=== PATIENT | female | born 1935 | race African-American/Black ===

== ENCOUNTER 2019-08-02 11:46 | Day surgery (SDC) | payer MEDICARE, OTHER ==
[2019-08-02 12:58] VITALS: BMI 21.0
[2019-08-02] MEDS ORDERED: Acetaminophen 500 MG TAB PO SCH (13:15)
[2019-08-02] MEDS ORDERED: diphenhydrAMINE 25 MG CAP PO SCH (13:15)
[2019-08-02 20:15] VITALS: BP 167/68; TEMP 97.9
[2019-08-02 20:19] LABS: #Lymphocytes 0.8 thou/uL (1.20-3.40); #Monocytes 0.6 thou/uL (0.11-0.59); #Neutrophils 2.5 thou/uL (1.40-6.50); %Basophils 0.4 % (0.0-1.0); %Eosinophils 0.2 % (0.0-10.0); %Lymphocytes 20.3 % (21.0-51.0); %Monocytes 14.6 % (0.0-10.0); %Neutrophils 64.5 % (42.0-75.0); Hemoglobin 9.5 g/dL (12.0-16.0); Mean Corpuscular HGB CONC 33.7 g/dL (32.0-36.0); Mean Corpuscular Hemoglobin 30.3 pg (27.0-31.0); Mean Platelet Volume 6.6 fL (7.4-10.4); Platelet Count 259 thou/uL (130-400); RBC Distribution Width 14.2 % (11.5-14.5); Red Blood Cell (RBC) Count 3.14 mill/uL (4.20-5.40); White Blood Cell (WBC) Count 3.9 thou/uL (4.8-10.8)
== END 2019-08-02 20:20 | disposition home or self-care (01) ==
LOC: ONC/OP 11:46 → ONC 11:47 → ONC/OP 20:20
PROVIDERS: ATTEND Internal Medicine Hematology & Oncology
PROC: 30233N1 Transfusion of Nonautologous Red Blood Cells into Peripheral Vein, Percutaneous Approach (ICD-10-PCS; principal; 2019-08-02)
DX: D64.9 Anemia, unspecified (principal); D69.6 Thrombocytopenia, unspecified; Z88.2 Allergy status to sulfonamides
CPT/HCPCS: 36415; 36430; 85025; 86850; 86900; 86901; P9016; Q0163